=== PATIENT | female | born 1965 ===

== ENCOUNTER 2022-05-23 02:30 | Inpatient (IN) | payer MEDICAID ==
[2022-05-23 17:41] LABS: Basophils % (Auto) 0.6 % (0.0-1.8); Eosinophils # (Auto) 0.1 K/mm3 (0.0-0.4); Eosinophils % (Auto) 1.2 % (0.0-4.3); Hematocrit 39.4 % (30.3-42.9); Hemoglobin 12.7 gm/dl (10.1-14.3); Lymphocytes # (Auto) 0.7 K/mm3 (1.2-5.4); Lymphocytes % (Auto) 9.7 % (13.4-35.0); Mean Corpuscular HGB Conc 32 % (30-34); Mean Corpuscular Volume 87 fl (79-97); Monocytes # (Auto) 0.4 K/mm3 (0.0-0.8); Monocytes % (Auto) 6.5 % (0.0-7.3); Platelet Count 166 K/mm3 (140-440); Red Blood Count 4.53 M/mm3 (3.65-5.03); Red Cell Distribution Width 14.3 % (13.2-15.2)
[2022-05-23 19:00] LABS: Alanine Aminotransferase 18 units/L (7-56); Blood Urea Nitrogen 9 mg/dL (7-17); Calcium 8.8 mg/dL (8.4-10.2); Hemolysis Index 1
[2022-05-23 19:02] LABS: BUN/Creatinine Ratio 13
[2022-05-23] MEDS: GABAPENTIN 400 MG CAP PO SCH (20:16)
[2022-05-23] MEDS: ALPRAZolam 1 MG TAB PO SCH (21:06)
[2022-05-24] MEDS: ALPRAZolam 1 MG TAB PO SCH ×2 (09:41→21:45)
[2022-05-24] MEDS: GABAPENTIN 400 MG CAP PO SCH ×3 (09:41→21:45)
--- NOTE | 2022-05-24 11:58 | History and Physical Report ---
GP History & Physical - History of Present Illness Date of admission: 05/23/22 Date of Examination: 05/24/22 Reason for Admission: Danger to self, Failure of Outpatient Treatment, Severe anxiety/depression History of Present Illness: The patient was seen today. She is found standing in the bathroom door way crying and shaking. The patient says her legs are giving out and she can't walk. I turned the wheelchair around and assisted her in it. The patient says she doesn't know why no one is listening to her. She says "I can't walk. I need to be in a medical hospital not a psych burgos." She denies SI/HI. The patient says "no, no, I'm not suicidal. I'm fighting to stay alive." She denies hallucinations. The patient is crying as she's talking about her boyfriend of 17 years. She says he in December after his lawnmower turned over on him. She says she has a history of Bipolar and takes Celexa. The patient denies any illicit drug use outside of [facility]. Admission note states EMS noted bizarre behavior, paranoia and making thrashing movements with arms machine captain. PAST PSYCHIATRIC HISTORY: Diagnoses: Bipolar Suicide attempts or Self-harm behavior: Denies Prior psychiatric hospitalizations: Denies Substance Abuse history: [facility] Previous psychiatric medications tried: Celexa Outpatient treatment: Yes PAST MEDICAL HISTORY: None reported Family Psychiatric History: None reported or documented SOCIAL HISTORY Marital Status: Single Living Arrangements: Lives with someone Employment Status: Disabled Access to guns/weapons: Denies Education: History of Abuse:Denies Legal History: Denies REVIEW OF SYSTEMS Constitutional: Negative for weight loss ENT: Negative for stridor Respiratory: Negative for cough or hemoptysis All other systems reviewed and are negative MENTAL STATUS EXAMINATION General Appearance and Behavior: Age appropriate, wearing appropriate clothes, cooperative, polite with questioning, good eye contact Cooperation: cooperative Psychomotor Behavior: Psychomotor normal Mood: Depressed Affect and affective range: congruent with stated affect, crying Thought Process: goal directed Thought Content: None Speech: Normal volume, Regular rate and rhythm Suicidal Ideation: Denies Homicidal Ideation: Denies Hallucination: Denies Delusions: Yes Impulse Control: Limited Insight and Judgment: Limited Memory: Intact Attention: attentive Orientation: Alert and oriented Diagnoses: Bipolar Disorder Treatment Plan Patient admitted for inpatient psychiatric evaluation, medication adjustment and close monitoring The patient's behavior, mood, sleep and appetite will be closely monitored. Patient enrolled in individual and group therapeutic sessions and encouraged to attend. Patient provided with a safe and structured environment. Patient's physical health needs will be addressed by the Hospitalist. Hospitalist Consulted Labs including CBC, CMP, Lipid profile and Hemoglobin A1C levels ordered for baseline reference Social Assessment will be completed and the Food And Beverage Assistant Manager will work with patient and family to ensure a suitable and safe disposition Medication adjustment will be made as clinically indicated Restarted Home Meds Start Risperidone 0.25mg po BID Usual Wellness [employer] The patient agreed on the treatment plan, understood the risk, benefit, alternative treatment, potential consequence of no treatment, and gave informed consent. Estimated days: 7 Post hospital care: primary care provider, psychiatric provider Case staffed with Dr. Plummer Legal Status: Voluntary Reaction to Hospitalization: Accepting Medications and Allergies Allergies Allergy/AdvReac Type Severity Reaction Status Date / Time sumatriptan [From Imitrex] Allergy Unknown Verified 05/23/22 10:12 Home Medications Medication Instructions Recorded Confirmed Last Taken Type ALPRAZolam [Xanax TAB] 1 mg PO BID 05/23/22 05/23/22 Unknown History Citalopram [celeXA] 40 mg PO QDAY 05/23/22 05/23/22 Unknown History Gabapentin [Neurontin] 800 mg PO TID 05/23/22 05/23/22 Unknown History LORazepam [Ativan] 1 mg PO BID 05/23/22 05/23/22 Unknown History LORazepam [Ativan] 1 mg PO ONCE 05/23/22 05/23/22 05/22/22 19:47 History Levothyroxine [Synthroid] 100 mcg PO QAM 05/23/22 05/23/22 Unknown History Magnesium Sulfate 4 meq IJ ONCE 05/23/22 05/23/22 05/22/22 History Potassium Chloride [K-Dur] 40 meq PO ONCE 05/23/22 05/23/22 05/22/22 History haloperidoL [Haldol] 5 mg PO ONCE 05/23/22 05/23/22 05/22/22 21:36 History hydroCHLOROthiazide [Hctz] 12.5 mg PO PRN 05/23/22 05/23/22 Unknown History Active Meds: Active Medications Alprazolam (Alprazolam 1 Mg Tab) 1 mg PO BID [facility] Last Admin: 05/24/22 09:41 Dose: 1 mg Gabapentin (Gabapentin 400 Mg Cap) 800 mg PO TID [facility] Last Admin: 05/24/22 09:41 Dose: 800 mg Results - Results Labs/Vitals: Laboratory Last Values WBC 6.9 K/mm3 (4.5-11.0) 05/23/22 17:00 RBC 4.53 M/mm3 (3.65-5.03) 05/23/22 17:00 Hgb 12.7 gm/dl (10.1-14.3) 05/23/22 17:00 Hct 39.4 % (30.3-42.9) 05/23/22 17:00 MCV 87 fl (79-97) 05/23/22 17:00 MCH 28 pg (28-32) 05/23/22 17:00 MCHC 32 % (30-34) 05/23/22 17:00 RDW 14.3 % (13.2-15.2) 05/23/22 17:00 Plt Count 166 K/mm3 (140-440) 05/23/22 17:00 Lymph % (Auto) 9.7 % (13.4-35.0) L 05/23/22 17:00 [place] % (Auto) 6.5 % (0.0-7.3) 05/23/22 17:00 Eos % (Auto) 1.2 % (0.0-4.3) 05/23/22 17:00 Baso % (Auto) 0.6 % (0.0-1.8) 05/23/22 17:00 Lymph # (Auto) 0.7 K/mm3 (1.2-5.4) L 05/23/22 17:00 [place] # (Auto) 0.4 K/mm3 (0.0-0.8) 05/23/22 17:00 Eos # (Auto) 0.1 K/mm3 (0.0-0.4) 05/23/22 17:00 Baso # (Auto) 0.0 K/mm3 (0.0-0.1) 05/23/22 17:00 Seg Neutrophils % 82.0 % (40.0-70.0) H 05/23/22 17:00 Seg Neutrophils # 5.6 K/mm3 (1.8-7.7) 05/23/22 17:00 Sodium 137 mmol/L (137-145) 05/23/22 17:00 Potassium 3.2 mmol/L (3.6-5.0) L 05/23/22 17:00 Chloride 100.2 mmol/L (98-107) 05/23/22 17:00 Carbon Dioxide 27 mmol/L (22-30) 05/23/22 17:00 Anion Gap 13 mmol/L 05/23/22 17:00 BUN 9 mg/dL (7-17) 05/23/22 17:00 Creatinine 0.7 mg/dL (0.6-1.2) 05/23/22 17:00 Estimated GFR > 60 ml/min 05/23/22 17:00 BUN/Creatinine Ratio 13 % 05/23/22 17:00 Glucose 118 mg/dL (65-100) H 05/23/22 17:00 Hemoglobin A1c 5.8 % (4-6) 05/23/22 17:00 Calcium 8.8 mg/dL (8.4-10.2) 05/23/22 17:00 Total Bilirubin 0.50 mg/dL (0.1-1.2) 05/23/22 17:00 AST 13 units/L (5-40) 05/23/22 17:00 ALT 18 units/L (7-56) 05/23/22 17:00 Alkaline Phosphatase 52 units/L (35-129) 05/23/22 17:00 Total Protein 5.6 g/dL (6.3-8.2) L 05/23/22 17:00 Albumin 4.0 g/dL (3.9-5) 05/23/22 17:00 Albumin/Globulin Ratio 2.5 % 05/23/22 17:00 TSH 1.230 mlU/mL (0.270-4.200) 05/23/22 17:00 Last Vital Signs Temp 99.0 F 05/23/22 22:00 Pulse 98 H 05/23/22 22:00 Resp 18 05/23/22 22:00 BP 170/78 05/23/22 19:21 Pulse Ox 94 05/23/22 22:00 Physical Examination - Constitutional Vitals: Vital Signs Temp Pulse Resp BP Pulse Ox 99.0 F 98 H 18 170/78 94 05/23/22 22:00 05/23/22 22:00 05/23/22 22:00 05/23/22 19:21 05/23/22 22:00 Temperature -Last 24 Hours Temperature 99.0 F Temperature 99.0 F Temperature 98.1 F Mental Status Exam - Vital signs Last Vital Signs Temp 99.0 F 05/23/22 22:00 Pulse 98 H 05/23/22 22:00 Resp 18 05/23/22 22:00 BP 170/78 05/23/22 19:21 Pulse Ox 94 05/23/22 22:00 Physician Certification - Certification Statement Physician Certification Statement: This is an acknowledgement statement that PAULINA MCMAHAN is a 56 year old F who requires inpatient psychiatric admission for treatment which could reasonably be expected to improve the patient's condition for Estimated period of time patient will need to remain in the hospital: [ ] Plan for post-hospital care: [ ]
[2022-05-24] MEDS ORDERED: hydroCHLOROthiazide 12.5 MG CAP PO SCH (13:00)
[2022-05-24] MEDS: CITALOPRAM 20 MG TAB PO SCH (13:02)
[2022-05-24] MEDS: risperiDONE 0.25 MG TAB PO SCH ×2 (13:03→21:45)
--- NOTE | 2022-05-24 16:32 | Consultation ---
History of Present Illness - Reason for Consult Consult date: 05/24/22 Medical management - History of Present Illness Patient is a 56-year-old female past medical history of bipolar disorder, possible schizophrenia, anxiety/depression, hypertension, hypothyroidism, and morbid obesity who presented to the [facility] psychiatric unit for management of severe anxiety and depression after failing outpatient treatment. Patient was erratic in her conversation while denying having suicidal ideation. Patient denies any hallucinations. The hospitalist service was consulted for medical management. Past History Past Medical History: hyperthyroidism, hypertension, other (Depression, anxiety, bipolar disorder) Past Surgical History: No surgical history Social history: single, Lives alone, full code Family history: no significant family history Medications and Allergies Allergies Allergy/AdvReac Type Severity Reaction Status Date / Time sumatriptan [From Imitrex] Allergy Unknown Verified 05/23/22 10:12 Home Medications Medication Instructions Recorded Confirmed Last Taken Type ALPRAZolam [Xanax TAB] 1 mg PO BID 05/23/22 05/23/22 Unknown History Citalopram [celeXA] 40 mg PO QDAY 05/23/22 05/23/22 Unknown History Gabapentin [Neurontin] 800 mg PO TID 05/23/22 05/23/22 Unknown History LORazepam [Ativan] 1 mg PO BID 05/23/22 05/23/22 Unknown History LORazepam [Ativan] 1 mg PO ONCE 05/23/22 05/23/22 05/22/22 19:47 History Levothyroxine [Synthroid] 100 mcg PO QAM 05/23/22 05/23/22 Unknown History Magnesium Sulfate 4 meq IJ ONCE 05/23/22 05/23/22 05/22/22 History Potassium Chloride [K-Dur] 40 meq PO ONCE 05/23/22 05/23/22 05/22/22 History haloperidoL [Haldol] 5 mg PO ONCE 05/23/22 05/23/22 05/22/22 21:36 History hydroCHLOROthiazide [Hctz] 12.5 mg PO PRN 05/23/22 05/23/22 Unknown History Active Meds: Active Medications Alprazolam (Alprazolam 1 Mg Tab) 1 mg PO BID [facility] Last Admin: 05/24/22 09:41 Dose: 1 mg Citalopram Hydrobromide (Citalopram 20 Mg Tab) 40 mg PO QDAY [facility] Last Admin: 05/24/22 13:02 Dose: 40 mg Gabapentin (Gabapentin 400 Mg Cap) 800 mg PO TID [facility] Last Admin: 05/24/22 14:00 Dose: 800 mg Hydrochlorothiazide (Hydrochlorothiazide 12.5 Mg Cap) 25 mg PO QDAY [facility] Levothyroxine Sodium (Levothyroxine 100 Mcg Tab) 100 mcg PO QAM [facility] Nifedipine (Nifedipine Xl 30 Mg Tab) 30 mg PO QDAY [facility] Potassium Chloride (Potassium Chloride Er 20 Meq Tab) 40 meq PO BID [facility] Stop: 05/24/22 22:01 Risperidone (Risperidone 0.25 Mg Tab) 0.25 mg PO BID [facility] Last Admin: 05/24/22 13:03 Dose: 0.25 mg Review of Systems ROS unobtainable: due to mental status Exam - Constitutional Vitals: Temp Pulse Resp BP Pulse Ox 99.0 F 98 H 18 170/78 94 05/23/22 22:00 05/23/22 22:00 05/23/22 22:00 05/23/22 19:21 05/23/22 22:00 General appearance: Present: mild distress, well-nourished, obese - EENT Eyes: Present: PERRL, EOM intact ENT: hearing intact, clear oral mucosa - Neck Neck: Present: supple, normal ROM - Respiratory Respiratory effort: normal Respiratory: bilateral: CTA - Cardiovascular Rhythm: regular Heart Sounds: Present: S1 & S2 - Extremities Extremities: no ischemia, pulses intact, pulses symmetrical, No edema, normal temperature, normal color Peripheral Pulses: within normal limits - Abdominal General gastrointestinal: Present: soft, non-tender, non-distended, normal bowel sounds Female genitourinary: Present: deferred - Rectal Rectal Exam: deferred - Integumentary Integumentary: Present: clear, warm, dry - Musculoskeletal Musculoskeletal: strength equal bilaterally - Psychiatric Psychiatric: depressed - Neurologic Neurologic: CNII-XII intact, moves all extremities - Allied Health Allied health notes reviewed: nursing Results - Labs CBC & Chem 7: 05/23/22 17:00 05/23/22 17:00 Labs: Abnormal lab results 05/23/22 05/23/22 Range/Units 17:00 17:00 Lymph % (Auto) 9.7 L (13.4-35.0) % Lymph # (Auto) 0.7 L (1.2-5.4) K/mm3 Seg Neutrophils % 82.0 H (40.0-70.0) % Potassium 3.2 L (3.6-5.0) mmol/L Glucose 118 H (65-100) mg/dL Total Protein 5.6 L (6.3-8.2) g/dL Assessment and Plan Patient is a 56-year-old female past medical history of bipolar disorder, possible schizophrenia, anxiety/depression, hypertension, hypothyroidism, and morbid obesity who presented to the [facility] psychiatric unit for management of severe anxiety and depression after failing outpatient treatment. Patient was erratic in her conversation while denying having suicidal ideation. Patient denies any hallucinations. The hospitalist service was consulted for medical management. #Anxiety/depression #Bipolar disorder #Possible schizophrenia Management per primary team #Hypokalemia Potassium 3.2 Repleted. Monitor with repeat BMP in the morning. #Hypertension - home medications: Hydrochlorothiazide 12.5 mg daily as needed - current medications: Hydrochlorothiazide 25 mg daily, nifedipine 30 mg daily - SBP goal <160 and DBP goal <90 while inpatient - continue to monitor #Hypothyroidism Continue home levothyroxine 100 mcg daily #Morbid obesity #Weight loss counseling #Exercise counseling - BMI 40.4 - Counseled patient on the importance of weight loss, incorporating exercise, and dietary changes (lean meats, fresh fruits and vegetables, and water intake). Patient expresses understanding. - Time: +15 min #Advanced care planning -Disease education conducted, care plan discussed, diagnoses discussed, prognosis discussed, and patient acknowledges understanding with care plan -Time: +30 min Thank you for this interesting consult. The hospitalist service will continue to follow. Please feel free to reach out should any questions arise.
[2022-05-24] MEDS: NIFEdipine XL 30 MG TAB PO SCH (17:15)
[2022-05-24] MEDS: POTASSIUM CHLORIDE ER 20 MEQ TAB PO SCH ×2 (17:15→21:46)
[2022-05-24] MEDS: ACETAMINOPHEN 325 MG TAB PO PRN (23:42)
[2022-05-25] MEDS: ACETAMINOPHEN 325 MG TAB PO PRN ×4 (05:46→22:25)
[2022-05-25] MEDS: LEVOTHYROXINE 100 MCG TAB PO SCH (05:56)
[2022-05-25] MEDS ORDERED: LEVOTHYROXINE 100 MCG TAB PO SCH (06:00)
--- NOTE | 2022-05-25 07:47 | Progress Note ---
Subjective Date of service: 05/25/22 Principal diagnosis: schizoaffective Subjective Comment: The patient was seen today. She seems to have somatic problems. She says she has an infected tooth, and states it has her whole face is swollen and has her eye red. She says "I'm scared it's going to get to my brain." There is no obvious swelling to her face or eye. She also complained of not being able to walk. She denies SI/HI. She says "I was never that." The patient does state she is depressed. The patient denies hallucinations. Nurse informed that the patient's BP has been elevated. Advised to page hospitalist and inform of any medical problems. REVIEW OF SYSTEMS Constitutional: Negative for weight loss ENT: Negative for stridor Respiratory: Negative for cough or hemoptysis All other systems reviewed and are negative MENTAL STATUS EXAMINATION General Appearance and Behavior: Age appropriate, wearing appropriate clothes, cooperative, polite with questioning, good eye contact Cooperation: cooperative Psychomotor Behavior: Psychomotor normal Mood: Depressed Affect and affective range: congruent with stated affect, crying Thought Process: goal directed Thought Content: None Speech: Normal volume, Regular rate and rhythm Suicidal Ideation: Denies Homicidal Ideation: Denies Hallucination: Denies Delusions: Yes Impulse Control: Limited Insight and Judgment: Limited Memory: Intact Attention: attentive Orientation: Alert and oriented Diagnoses: Bipolar Disorder Treatment Plan Patient admitted for inpatient psychiatric evaluation, medication adjustment and close monitoring The patient's behavior, mood, sleep and appetite will be closely monitored. Patient enrolled in individual and group therapeutic sessions and encouraged to attend. Patient provided with a safe and structured environment. Patient's physical health needs will be addressed by the Hospitalist. Hospitalist Consulted Labs including CBC, CMP, Lipid profile and Hemoglobin A1C levels ordered for baseline reference Social Assessment will be completed and the Tariff Expert will work with patient and family to ensure a suitable and safe disposition Medication adjustment will be made as clinically indicated Increased Risperidone 0.5mg po BID Usual Wellness [employer]/Preservation The patient agreed on the treatment plan, understood the risk, benefit, alternative treatment, potential consequence of no treatment, and gave informed consent. Estimated days: 7 Post hospital care: primary care provider, psychiatric provider Case staffed with Dr. Plummer Medications and Allergies Allergies Allergy/AdvReac Type Severity Reaction Status Date / Time sumatriptan [From Imitrex] Allergy Unknown Verified 05/23/22 10:12 Home Medications Medication Instructions Recorded Confirmed Last Taken Type ALPRAZolam [Xanax TAB] 1 mg PO BID 05/23/22 05/23/22 Unknown History Citalopram [celeXA] 40 mg PO QDAY 05/23/22 05/23/22 Unknown History Gabapentin [Neurontin] 800 mg PO TID 05/23/22 05/23/22 Unknown History LORazepam [Ativan] 1 mg PO BID 05/23/22 05/23/22 Unknown History LORazepam [Ativan] 1 mg PO ONCE 05/23/22 05/23/22 05/22/22 19:47 History Levothyroxine [Synthroid] 100 mcg PO QAM 05/23/22 05/23/22 Unknown History Magnesium Sulfate 4 meq IJ ONCE 05/23/22 05/23/22 05/22/22 History Potassium Chloride [K-Dur] 40 meq PO ONCE 05/23/22 05/23/22 05/22/22 History haloperidoL [Haldol] 5 mg PO ONCE 05/23/22 05/23/22 05/22/22 21:36 History hydroCHLOROthiazide [Hctz] 12.5 mg PO PRN 05/23/22 05/23/22 Unknown History Active Meds: Active Medications Acetaminophen (Acetaminophen 325 Mg Tab) 650 mg PO Q6H PRN PRN Reason: Pain, Mild (1-3) Last Admin: 05/25/22 05:46 Dose: 650 mg Alprazolam (Alprazolam 1 Mg Tab) 1 mg PO BID [facility] Last Admin: 05/24/22 21:45 Dose: 1 mg Citalopram Hydrobromide (Citalopram 20 Mg Tab) 40 mg PO QDAY [facility] Last Admin: 05/24/22 13:02 Dose: 40 mg Gabapentin (Gabapentin 400 Mg Cap) 800 mg PO TID [facility] Last Admin: 05/24/22 21:45 Dose: 800 mg Hydrochlorothiazide (Hydrochlorothiazide 12.5 Mg Cap) 25 mg PO QDAY [facility] Levothyroxine Sodium (Levothyroxine 100 Mcg Tab) 100 mcg PO QAM@0600 [facility] Last Admin: 05/25/22 05:56 Dose: 100 mcg Nifedipine (Nifedipine Xl 30 Mg Tab) 30 mg PO QDAY [facility] Last Admin: 05/24/22 17:15 Dose: 30 mg Risperidone (Risperidone 0.25 Mg Tab) 0.25 mg PO BID [facility] Last Admin: 05/24/22 21:45 Dose: 0.25 mg Results - Results Labs/Vitals: Laboratory Last Values WBC 6.9 K/mm3 (4.5-11.0) 05/23/22 17:00 RBC 4.53 M/mm3 (3.65-5.03) 05/23/22 17:00 Hgb 12.7 gm/dl (10.1-14.3) 05/23/22 17:00 Hct 39.4 % (30.3-42.9) 05/23/22 17:00 MCV 87 fl (79-97) 05/23/22 17:00 MCH 28 pg (28-32) 05/23/22 17:00 MCHC 32 % (30-34) 05/23/22 17:00 RDW 14.3 % (13.2-15.2) 05/23/22 17:00 Plt Count 166 K/mm3 (140-440) 05/23/22 17:00 Lymph % (Auto) 9.7 % (13.4-35.0) L 05/23/22 17:00 [place] % (Auto) 6.5 % (0.0-7.3) 05/23/22 17:00 Eos % (Auto) 1.2 % (0.0-4.3) 05/23/22 17:00 Baso % (Auto) 0.6 % (0.0-1.8) 05/23/22 17:00 Lymph # (Auto) 0.7 K/mm3 (1.2-5.4) L 05/23/22 17:00 [place] # (Auto) 0.4 K/mm3 (0.0-0.8) 05/23/22 17:00 Eos # (Auto) 0.1 K/mm3 (0.0-0.4) 05/23/22 17:00 Baso # (Auto) 0.0 K/mm3 (0.0-0.1) 05/23/22 17:00 Seg Neutrophils % 82.0 % (40.0-70.0) H 05/23/22 17:00 Seg Neutrophils # 5.6 K/mm3 (1.8-7.7) 05/23/22 17:00 Sodium 137 mmol/L (137-145) 05/23/22 17:00 Potassium 3.2 mmol/L (3.6-5.0) L 05/23/22 17:00 Chloride 100.2 mmol/L (98-107) 05/23/22 17:00 Carbon Dioxide 27 mmol/L (22-30) 05/23/22 17:00 Anion Gap 13 mmol/L 05/23/22 17:00 BUN 9 mg/dL (7-17) 05/23/22 17:00 Creatinine 0.7 mg/dL (0.6-1.2) 05/23/22 17:00 Estimated GFR > 60 ml/min 05/23/22 17:00 BUN/Creatinine Ratio 13 % 05/23/22 17:00 Glucose 118 mg/dL (65-100) H 05/23/22 17:00 Hemoglobin A1c 5.8 % (4-6) 05/23/22 17:00 Calcium 8.8 mg/dL (8.4-10.2) 05/23/22 17:00 Total Bilirubin 0.50 mg/dL (0.1-1.2) 05/23/22 17:00 AST 13 units/L (5-40) 05/23/22 17:00 ALT 18 units/L (7-56) 05/23/22 17:00 Alkaline Phosphatase 52 units/L (35-129) 05/23/22 17:00 Total Protein 5.6 g/dL (6.3-8.2) L 05/23/22 17:00 Albumin 4.0 g/dL (3.9-5) 05/23/22 17:00 Albumin/Globulin Ratio 2.5 % 05/23/22 17:00 TSH 1.230 mlU/mL (0.270-4.200) 05/23/22 17:00 Last Vital Signs Temp 99.5 F 05/24/22 20:00 Pulse 92 H 05/24/22 20:00 Resp 16 05/24/22 23:42 BP 175/93 05/24/22 20:00 Pulse Ox 95 05/24/22 20:00
[2022-05-25 09:14] LABS: Blood Urea Nitrogen 9 mg/dL (7-17); Calcium 9.6 mg/dL (8.4-10.2); Hemolysis Index 6
[2022-05-25 09:15] LABS: BUN/Creatinine Ratio 13
[2022-05-25] MEDS: risperiDONE 0.25 MG TAB PO SCH ×3 (09:15→21:09)
[2022-05-25] MEDS: GABAPENTIN 400 MG CAP PO SCH ×3 (09:15→19:40)
[2022-05-25] MEDS: CITALOPRAM 20 MG TAB PO SCH (09:15)
[2022-05-25] MEDS: ALPRAZolam 1 MG TAB PO SCH ×2 (09:15→21:09)
[2022-05-25] MEDS: NIFEdipine XL 30 MG TAB PO SCH (09:16)
[2022-05-25] MEDS ORDERED: hydroCHLOROthiazide 12.5 MG CAP PO SCH (10:00)
[2022-05-25] MEDS: LOSARTAN 50 MG TAB PO SCH (11:34)
--- NOTE | 2022-05-25 16:02 | Progress Note ---
Assessment and Plan Assessment and plan: Patient is a 56-year-old female past medical history of bipolar disorder, possible schizophrenia, anxiety/depression, hypertension, hypothyroidism, and morbid obesity who presented to the [facility] psychiatric unit for management of severe anxiety and depression after failing outpatient treatment. Patient was erratic in her conversation while denying having suicidal ideation. Patient denies any hallucinations. The hospitalist service was consulted for medical management. #Anxiety/depression #Bipolar disorder #Possible schizophrenia Management per primary team #Hypokalemia-resolved Potassium 3.2 Repleted. Monitor with repeat BMP in the morning. #Hypertension - home medications: Hydrochlorothiazide 12.5 mg daily as needed - current medications: Nifedipine 60 mg daily, losartan 50mg daily - SBP goal <160 and DBP goal <90 while inpatient - continue to monitor #Hypothyroidism Continue home levothyroxine 100 mcg daily #Morbid obesity #Weight loss counseling #Exercise counseling - BMI 40.4 - Counseled patient on the importance of weight loss, incorporating exercise, and dietary changes (lean meats, fresh fruits and vegetables, and water intake). Patient expresses understanding. - Time: +15 min #Advanced care planning -Disease education conducted, care plan discussed, diagnoses discussed, prognosis discussed, and patient acknowledges understanding with care plan -Time: +30 min Thank you for this interesting consult. The hospitalist service will continue to follow. Please feel free to reach out should any questions arise. Disposition Plan: Continue medical management Total Time Spent with Patient (Minutes): 45 minutes History Interval history: No acute events overnight. Hospitalist Physical - Constitutional Vitals: Temp Pulse Resp BP Pulse Ox 98.9 F 86 18 186/97 96 05/25/22 09:45 05/25/22 14:38 05/25/22 09:45 05/25/22 14:38 05/25/22 09:45 General appearance: Present: mild distress, well-nourished, obese - EENT Eyes: Present: PERRL, EOM intact ENT: hearing intact, clear oral mucosa - Neck Neck: Present: supple, normal ROM - Respiratory Respiratory effort: normal Respiratory: bilateral: CTA - Cardiovascular Rhythm: regular Heart Sounds: Present: S1 & S2 - Extremities Extremities: no ischemia, pulses intact, pulses symmetrical, No edema, normal temperature, normal color Peripheral Pulses: within normal limits - Abdominal General gastrointestinal: soft, non-tender, non-distended, normal bowel sounds - Integumentary Integumentary: Present: clear, warm, dry - Psychiatric Psychiatric: depressed - Neurologic Neurologic: CNII-XII intact - Allied Health Allied health notes reviewed: nursing Results - Labs CBC & Chem 7: 05/23/22 17:00 05/25/22 08:39 Labs: Laboratory Last Values WBC 6.9 K/mm3 (4.5-11.0) 05/23/22 17:00 RBC 4.53 M/mm3 (3.65-5.03) 05/23/22 17:00 Hgb 12.7 gm/dl (10.1-14.3) 05/23/22 17:00 Hct 39.4 % (30.3-42.9) 05/23/22 17:00 MCV 87 fl (79-97) 05/23/22 17:00 MCH 28 pg (28-32) 05/23/22 17:00 MCHC 32 % (30-34) 05/23/22 17:00 RDW 14.3 % (13.2-15.2) 05/23/22 17:00 Plt Count 166 K/mm3 (140-440) 05/23/22 17:00 Lymph % (Auto) 9.7 % (13.4-35.0) L 05/23/22 17:00 [place] % (Auto) 6.5 % (0.0-7.3) 05/23/22 17:00 Eos % (Auto) 1.2 % (0.0-4.3) 05/23/22 17:00 Baso % (Auto) 0.6 % (0.0-1.8) 05/23/22 17:00 Lymph # (Auto) 0.7 K/mm3 (1.2-5.4) L 05/23/22 17:00 [place] # (Auto) 0.4 K/mm3 (0.0-0.8) 05/23/22 17:00 Eos # (Auto) 0.1 K/mm3 (0.0-0.4) 05/23/22 17:00 Baso # (Auto) 0.0 K/mm3 (0.0-0.1) 05/23/22 17:00 Seg Neutrophils % 82.0 % (40.0-70.0) H 05/23/22 17:00 Seg Neutrophils # 5.6 K/mm3 (1.8-7.7) 05/23/22 17:00 Sodium 139 mmol/L (137-145) 05/25/22 08:39 Potassium 4.2 mmol/L (3.6-5.0) D 05/25/22 08:39 Chloride 100.3 mmol/L (98-107) 05/25/22 08:39 Carbon Dioxide 27 mmol/L (22-30) 05/25/22 08:39 Anion Gap 16 mmol/L 05/25/22 08:39 BUN 9 mg/dL (7-17) 05/25/22 08:39 Creatinine 0.7 mg/dL (0.6-1.2) 05/25/22 08:39 Estimated GFR > 60 ml/min 05/25/22 08:39 BUN/Creatinine Ratio 13 % 05/25/22 08:39 Glucose 113 mg/dL (65-100) H 05/25/22 08:39 Hemoglobin A1c 5.8 % (4-6) 05/23/22 17:00 Calcium 9.6 mg/dL (8.4-10.2) 05/25/22 08:39 Total Bilirubin 0.50 mg/dL (0.1-1.2) 05/23/22 17:00 AST 13 units/L (5-40) 05/23/22 17:00 ALT 18 units/L (7-56) 05/23/22 17:00 Alkaline Phosphatase 52 units/L (35-129) 05/23/22 17:00 Total Protein 5.6 g/dL (6.3-8.2) L 05/23/22 17:00 Albumin 4.0 g/dL (3.9-5) 05/23/22 17:00 Albumin/Globulin Ratio 2.5 % 05/23/22 17:00 TSH 1.230 mlU/mL (0.270-4.200) 05/23/22 17:00 Alcantar/IV: Voiding Method Toilet Active Medications - Current Medications Current Medications: Generic Name Dose Route Start Last Admin Trade Name Freq PRN Reason Stop Dose Admin Acetaminophen 650 mg 05/24/22 23:31 05/25/22 11:33 Acetaminophen 325 Mg Tab PO 650 mg Q6H PRN Administration Pain, Mild (1-3) Alprazolam 1 mg 05/23/22 22:00 05/25/22 09:15 Alprazolam 1 Mg Tab PO 1 mg BID MARKUS Administration Citalopram Hydrobromide 40 mg 05/24/22 13:00 05/25/22 09:15 Citalopram 20 Mg Tab PO 40 mg QDAY MARKUS Administration Gabapentin 800 mg 05/23/22 20:00 05/25/22 14:04 Gabapentin 400 Mg Cap PO 800 mg TID MARKUS Administration Levothyroxine Sodium 100 mcg 05/25/22 06:00 05/25/22 05:56 Levothyroxine 100 Mcg Tab PO 100 mcg QAM@0600 MARKUS Administration Losartan Potassium 50 mg 05/25/22 10:02 05/25/22 11:34 Losartan 50 Mg Tab PO 50 mg QDAY MARKUS Administration Nifedipine 60 mg 05/25/22 10:03 Nifedipine Xl 30 Mg Tab PO QDAY MARKUS Risperidone 0.5 mg 05/25/22 10:00 05/25/22 09:55 Risperidone 0.25 Mg Tab PO Not Given BID MARKUS
[2022-05-26] MEDS: ACETAMINOPHEN 325 MG TAB PO PRN (04:00)
[2022-05-26] MEDS: LEVOTHYROXINE 100 MCG TAB PO SCH (05:02)
[2022-05-26] MEDS ORDERED: LORazepam 2 MG/ML VIAL IM PRN (05:28)
[2022-05-26] MEDS ORDERED: ONDANSETRON 4 MG ODT TAB PO PRN (08:56)
[2022-05-26] MEDS: GABAPENTIN 400 MG CAP PO SCH ×3 (09:00→20:45)
--- NOTE | 2022-05-26 09:09 | Progress Note ---
Subjective Date of service: 05/26/22 Principal diagnosis: schizoaffective Subjective Comment: The patient was seen today. She is complaining about tooth pain, and says she's having suboxone withdrawals. Staff says the patient was up all night, delusional, demanding and agitated. The patient denies SI/HI or hallucinations. She says she can not take the risperidone because it does not work well for her. Discussed with Dr. Plummer restarting suboxone. He also recommended lithium taper. REVIEW OF SYSTEMS Constitutional: Negative for weight loss ENT: Negative for stridor Respiratory: Negative for cough or hemoptysis All other systems reviewed and are negative MENTAL STATUS EXAMINATION General Appearance and Behavior: Age appropriate, wearing appropriate clothes, cooperative, polite with questioning, good eye contact Cooperation: cooperative Psychomotor Behavior: Psychomotor normal Mood: Depressed Affect and affective range: congruent with stated affect, crying Thought Process: goal directed Thought Content: None Speech: Normal volume, Regular rate and rhythm Suicidal Ideation: Denies Homicidal Ideation: Denies Hallucination: Denies Delusions: Yes Impulse Control: Limited Insight and Judgment: Limited Memory: Intact Attention: attentive Orientation: Alert and oriented Diagnoses: Bipolar Disorder Treatment Plan Patient admitted for inpatient psychiatric evaluation, medication adjustment and close monitoring The patient's behavior, mood, sleep and appetite will be closely monitored. Patient enrolled in individual and group therapeutic sessions and encouraged to attend. Patient provided with a safe and structured environment. Patient's physical health needs will be addressed by the Hospitalist. Hospitalist Consulted Labs including CBC, CMP, Lipid profile and Hemoglobin A1C levels ordered for baseline reference Social Assessment will be completed and the Prospecting Driller will work with patient and family to ensure a suitable and safe disposition Medication adjustment will be made as clinically indicated d/c Risperidone 0.5mg po BID Start Olanzapine 5mg po daily Start Depakote DR 125mg po BID Start Librium 25mg po BID Start Zofran 4mg po q5h prn N/V [employer]ness [employer] The patient agreed on the treatment plan, understood the risk, benefit, alternative treatment, potential consequence of no treatment, and gave informed consent. Estimated days: 7 Post hospital care: primary care provider, psychiatric provider Case staffed with Dr. Plummer Medications and Allergies Allergies Allergy/AdvReac Type Severity Reaction Status Date / Time sumatriptan [From Imitrex] Allergy Unknown Verified 05/23/22 10:12 Home Medications Medication Instructions Recorded Confirmed Last Taken Type ALPRAZolam [Xanax TAB] 1 mg PO BID 05/23/22 05/23/22 Unknown History Citalopram [celeXA] 40 mg PO QDAY 05/23/22 05/23/22 Unknown History Gabapentin [Neurontin] 800 mg PO TID 05/23/22 05/23/22 Unknown History LORazepam [Ativan] 1 mg PO BID 05/23/22 05/23/22 Unknown History LORazepam [Ativan] 1 mg PO ONCE 05/23/22 05/23/22 05/22/22 19:47 History Levothyroxine [Synthroid] 100 mcg PO QAM 05/23/22 05/23/22 Unknown History Magnesium Sulfate 4 meq IJ ONCE 05/23/22 05/23/22 05/22/22 History Potassium Chloride [K-Dur] 40 meq PO ONCE 05/23/22 05/23/22 05/22/22 History haloperidoL [Haldol] 5 mg PO ONCE 05/23/22 05/23/22 05/22/22 21:36 History hydroCHLOROthiazide [Hctz] 12.5 mg PO PRN 05/23/22 05/23/22 Unknown History Active Meds: Active Medications Acetaminophen (Acetaminophen 325 Mg Tab) 650 mg PO Q6H PRN PRN Reason: Pain, Mild (1-3) Last Admin: 05/26/22 04:00 Dose: 650 mg Alprazolam (Alprazolam 1 Mg Tab) 1 mg PO BID [facility] Last Admin: 05/25/22 21:09 Dose: 1 mg Citalopram Hydrobromide (Citalopram 20 Mg Tab) 40 mg PO QDAY [facility] Last Admin: 05/25/22 09:15 Dose: 40 mg Divalproex Sodium (Divalproex Dr 125 Mg Tab) 125 mg PO BID [facility] Gabapentin (Gabapentin 400 Mg Cap) 800 mg PO TID [facility] Last Admin: 05/25/22 19:40 Dose: 800 mg Levothyroxine Sodium (Levothyroxine 100 Mcg Tab) 100 mcg PO QAM@0600 [facility] Last Admin: 05/26/22 05:02 Dose: 100 mcg Lorazepam (Lorazepam 2 Mg/Ml Vial) 2 mg IM Q4H PRN PRN Reason: Agitation Last Admin: 05/26/22 05:35 Dose: 2 mg Losartan Potassium (Losartan 50 Mg Tab) 50 mg PO QDAY MARKUS Last Admin: 05/25/22 11:34 Dose: 50 mg Nifedipine (Nifedipine Xl 30 Mg Tab) 60 mg PO QDAY [facility] Ondansetron HCl (Ondansetron 4 Mg Odt Tab) 4 mg PO Q8H PRN PRN Reason: Nausea And Vomiting Results - Results Labs/Vitals: Laboratory Last Values WBC 6.9 K/mm3 (4.5-11.0) 05/23/22 17:00 RBC 4.53 M/mm3 (3.65-5.03) 05/23/22 17:00 Hgb 12.7 gm/dl (10.1-14.3) 05/23/22 17:00 Hct 39.4 % (30.3-42.9) 05/23/22 17:00 MCV 87 fl (79-97) 05/23/22 17:00 MCH 28 pg (28-32) 05/23/22 17:00 MCHC 32 % (30-34) 05/23/22 17:00 RDW 14.3 % (13.2-15.2) 05/23/22 17:00 Plt Count 166 K/mm3 (140-440) 05/23/22 17:00 Lymph % (Auto) 9.7 % (13.4-35.0) L 05/23/22 17:00 [place] % (Auto) 6.5 % (0.0-7.3) 05/23/22 17:00 Eos % (Auto) 1.2 % (0.0-4.3) 05/23/22 17:00 Baso % (Auto) 0.6 % (0.0-1.8) 05/23/22 17:00 Lymph # (Auto) 0.7 K/mm3 (1.2-5.4) L 05/23/22 17:00 [place] # (Auto) 0.4 K/mm3 (0.0-0.8) 05/23/22 17:00 Eos # (Auto) 0.1 K/mm3 (0.0-0.4) 05/23/22 17:00 Baso # (Auto) 0.0 K/mm3 (0.0-0.1) 05/23/22 17:00 Seg Neutrophils % 82.0 % (40.0-70.0) H 05/23/22 17:00 Seg Neutrophils # 5.6 K/mm3 (1.8-7.7) 05/23/22 17:00 Sodium 139 mmol/L (137-145) 05/25/22 08:39 Potassium 4.2 mmol/L (3.6-5.0) D 05/25/22 08:39 Chloride 100.3 mmol/L (98-107) 05/25/22 08:39 Carbon Dioxide 27 mmol/L (22-30) 05/25/22 08:39 Anion Gap 16 mmol/L 05/25/22 08:39 BUN 9 mg/dL (7-17) 05/25/22 08:39 Creatinine 0.7 mg/dL (0.6-1.2) 05/25/22 08:39 Estimated GFR > 60 ml/min 05/25/22 08:39 BUN/Creatinine Ratio 13 % 05/25/22 08:39 Glucose 113 mg/dL (65-100) H 05/25/22 08:39 Hemoglobin A1c 5.8 % (4-6) 05/23/22 17:00 Calcium 9.6 mg/dL (8.4-10.2) 05/25/22 08:39 Total Bilirubin 0.50 mg/dL (0.1-1.2) 05/23/22 17:00 AST 13 units/L (5-40) 05/23/22 17:00 ALT 18 units/L (7-56) 05/23/22 17:00 Alkaline Phosphatase 52 units/L (35-129) 05/23/22 17:00 Total Protein 5.6 g/dL (6.3-8.2) L 05/23/22 17:00 Albumin 4.0 g/dL (3.9-5) 05/23/22 17:00 Albumin/Globulin Ratio 2.5 % 05/23/22 17:00 TSH 1.230 mlU/mL (0.270-4.200) 05/23/22 17:00 Last Vital Signs Temp 98.8 F 05/25/22 19:40 Pulse 92 H 05/25/22 19:40 Resp 18 05/26/22 05:00 BP 166/96 05/25/22 19:40 Pulse Ox 93 05/25/22 19:40
[2022-05-26] MEDS ORDERED: ARIPiprazole 5 MG TAB PO SCH (10:00)
[2022-05-26] MEDS: NIFEdipine XL 30 MG TAB PO SCH (10:04)
[2022-05-26] MEDS: ALPRAZolam 1 MG TAB PO SCH ×2 (10:05→21:13)
[2022-05-26] MEDS: CITALOPRAM 20 MG TAB PO SCH (10:06)
[2022-05-26] MEDS: LOSARTAN 50 MG TAB PO SCH (10:06)
[2022-05-26] MEDS: chlordiazePOXIDE 25 MG CAP PO SCH ×2 (10:08→21:14)
[2022-05-26] MEDS: DIVALPROEX DR 125 MG TAB PO SCH ×2 (10:08→21:14)
[2022-05-26] MEDS: BUPRENORPHINE 2 MG/NALOXONE 0.5 MG FILM SL SCH ×2 (11:39→21:13)
--- NOTE | 2022-05-26 13:50 | Progress Note ---
Assessment and Plan Assessment and plan: Patient is a 56-year-old female past medical history of bipolar disorder, possible schizophrenia, anxiety/depression, hypertension, hypothyroidism, and morbid obesity who presented to the [facility] psychiatric unit for management of severe anxiety and depression after failing outpatient treatment. Patient was erratic in her conversation while denying having suicidal ideation. Patient denies any hallucinations. The hospitalist service was consulted for medical management. #Anxiety/depression #Bipolar disorder #Possible schizophrenia Management per primary team #Hypokalemia-resolved Potassium 3.2 Repleted. Monitor with repeat BMP in the morning. #Hypertension - home medications: Hydrochlorothiazide 12.5 mg daily as needed - current medications: Nifedipine 60 mg daily, losartan 50mg daily - SBP goal <160 and DBP goal <90 while inpatient - continue to monitor #Hypothyroidism Continue home levothyroxine 100 mcg daily #Morbid obesity #Weight loss counseling #Exercise counseling - BMI 40.4 - Counseled patient on the importance of weight loss, incorporating exercise, and dietary changes (lean meats, fresh fruits and vegetables, and water intake). Patient expresses understanding. - Time: +15 min #Advanced care planning -Disease education conducted, care plan discussed, diagnoses discussed, prognosis discussed, and patient acknowledges understanding with care plan -Time: +30 min Thank you for this interesting consult. The hospitalist service will continue to follow. Please feel free to reach out should any questions arise. Disposition Plan: Continue medical management Total Time Spent with Patient (Minutes): 30 minutes History Interval history: No acute events overnight. Hospitalist Physical - Constitutional Vitals: Temp Pulse Resp BP Pulse Ox 98.0 F 102 H 18 122/74 97 05/26/22 09:12 05/26/22 10:06 05/26/22 09:12 05/26/22 10:06 05/26/22 09:12 General appearance: Present: mild distress, well-nourished, obese - EENT Eyes: Present: PERRL, EOM intact ENT: hearing intact, clear oral mucosa, dentition normal - Neck Neck: Present: supple, normal ROM - Respiratory Respiratory effort: normal Respiratory: bilateral: CTA - Cardiovascular Rhythm: regular Heart Sounds: Present: S1 & S2 - Extremities Extremities: no ischemia, pulses intact, pulses symmetrical, No edema, normal temperature, normal color Peripheral Pulses: within normal limits - Abdominal General gastrointestinal: soft, non-tender, non-distended, normal bowel sounds - Integumentary Integumentary: Present: clear, warm, dry - Psychiatric Psychiatric: cooperative, depressed - Neurologic Neurologic: CNII-XII intact, moves all extremities - Allied Health Allied health notes reviewed: nursing Results - Labs CBC & Chem 7: 05/23/22 17:00 05/25/22 08:39 Labs: Laboratory Last Values WBC 6.9 K/mm3 (4.5-11.0) 05/23/22 17:00 RBC 4.53 M/mm3 (3.65-5.03) 05/23/22 17:00 Hgb 12.7 gm/dl (10.1-14.3) 05/23/22 17:00 Hct 39.4 % (30.3-42.9) 05/23/22 17:00 MCV 87 fl (79-97) 05/23/22 17:00 MCH 28 pg (28-32) 05/23/22 17:00 MCHC 32 % (30-34) 05/23/22 17:00 RDW 14.3 % (13.2-15.2) 05/23/22 17:00 Plt Count 166 K/mm3 (140-440) 05/23/22 17:00 Lymph % (Auto) 9.7 % (13.4-35.0) L 05/23/22 17:00 [place] % (Auto) 6.5 % (0.0-7.3) 05/23/22 17:00 Eos % (Auto) 1.2 % (0.0-4.3) 05/23/22 17:00 Baso % (Auto) 0.6 % (0.0-1.8) 05/23/22 17:00 Lymph # (Auto) 0.7 K/mm3 (1.2-5.4) L 05/23/22 17:00 [place] # (Auto) 0.4 K/mm3 (0.0-0.8) 05/23/22 17:00 Eos # (Auto) 0.1 K/mm3 (0.0-0.4) 05/23/22 17:00 Baso # (Auto) 0.0 K/mm3 (0.0-0.1) 05/23/22 17:00 Seg Neutrophils % 82.0 % (40.0-70.0) H 05/23/22 17:00 Seg Neutrophils # 5.6 K/mm3 (1.8-7.7) 05/23/22 17:00 Sodium 139 mmol/L (137-145) 05/25/22 08:39 Potassium 4.2 mmol/L (3.6-5.0) D 05/25/22 08:39 Chloride 100.3 mmol/L (98-107) 05/25/22 08:39 Carbon Dioxide 27 mmol/L (22-30) 05/25/22 08:39 Anion Gap 16 mmol/L 05/25/22 08:39 BUN 9 mg/dL (7-17) 05/25/22 08:39 Creatinine 0.7 mg/dL (0.6-1.2) 05/25/22 08:39 Estimated GFR > 60 ml/min 05/25/22 08:39 BUN/Creatinine Ratio 13 % 05/25/22 08:39 Glucose 113 mg/dL (65-100) H 05/25/22 08:39 Hemoglobin A1c 5.8 % (4-6) 05/23/22 17:00 Calcium 9.6 mg/dL (8.4-10.2) 05/25/22 08:39 Total Bilirubin 0.50 mg/dL (0.1-1.2) 05/23/22 17:00 AST 13 units/L (5-40) 05/23/22 17:00 ALT 18 units/L (7-56) 05/23/22 17:00 Alkaline Phosphatase 52 units/L (35-129) 05/23/22 17:00 Total Protein 5.6 g/dL (6.3-8.2) L 05/23/22 17:00 Albumin 4.0 g/dL (3.9-5) 05/23/22 17:00 Albumin/Globulin Ratio 2.5 % 05/23/22 17:00 TSH 1.230 mlU/mL (0.270-4.200) 05/23/22 17:00 Alcantar/IV: Voiding Method Toilet Active Medications - Current Medications Current Medications: Generic Name Dose Route Start Last Admin Trade Name Freq PRN Reason Stop Dose Admin Acetaminophen 650 mg 05/24/22 23:31 05/26/22 04:00 Acetaminophen 325 Mg Tab PO 650 mg Q6H PRN Administration Pain, Mild (1-3) Alprazolam 1 mg 05/23/22 22:00 05/26/22 10:05 Alprazolam 1 Mg Tab PO 1 mg BID MARKUS Administration Buprenorphine HCl 4 each 05/26/22 11:30 05/26/22 11:39 Buprenorphine 2 Mg/Naloxone 0.5 Mg Film SL 4 each BID MARKUS Administration Chlordiazepoxide HCl 25 mg 05/26/22 10:00 05/26/22 10:08 Chlordiazepoxide 25 Mg Cap PO Not Given BID MARKUS Citalopram Hydrobromide 40 mg 05/24/22 13:00 05/26/22 10:06 Citalopram 20 Mg Tab PO Not Given QDAY MARKUS Divalproex Sodium 125 mg 05/26/22 10:00 05/26/22 10:[address] 125 Mg Tab PO Not Given BID MARKUS Gabapentin 800 mg 05/23/22 20:00 05/26/22 09:00 Gabapentin 400 Mg Cap PO 800 mg TID MARKUS Administration Levothyroxine Sodium 100 mcg 05/25/22 06:00 05/26/22 05:02 Levothyroxine 100 Mcg Tab PO 100 mcg QAM@0600 MARKUS Administration Lorazepam 2 mg 05/26/22 05:28 05/26/22 05:35 Lorazepam 2 Mg/Ml Vial IM 2 mg Q4H PRN Administration Agitation Losartan Potassium 50 mg 05/25/22 10:02 05/26/22 10:06 Losartan 50 Mg Tab PO 50 mg QDAY MARKUS Administration Nifedipine 60 mg 05/25/22 10:03 05/26/22 10:04 Nifedipine Xl 30 Mg Tab PO 60 mg QDAY MARKUS Administration Olanzapine 5 mg 05/26/22 10:00 05/26/22 10:09 Olanzapine 5 Mg Tab PO Not Given QDAY MARKUS Ondansetron HCl 4 mg 05/26/22 08:56 05/26/22 09:48 Ondansetron 4 Mg Odt Tab PO 4 mg Q8H PRN Administration Nausea And Vomiting
[2022-05-27] MEDS: LEVOTHYROXINE 100 MCG TAB PO SCH (05:56)
[2022-05-27 07:33] VITALS: BP 120/69
[2022-05-27] MEDS: LOSARTAN 50 MG TAB PO SCH (09:20)
[2022-05-27] MEDS: CITALOPRAM 20 MG TAB PO SCH ×2 (09:20→09:23)
[2022-05-27] MEDS: ALPRAZolam 1 MG TAB PO SCH (09:20)
[2022-05-27] MEDS: DIVALPROEX DR 125 MG TAB PO SCH ×2 (09:20→09:23)
[2022-05-27] MEDS: BUPRENORPHINE 2 MG/NALOXONE 0.5 MG FILM SL SCH (09:21)
[2022-05-27] MEDS: NIFEdipine XL 30 MG TAB PO SCH (09:21)
--- NOTE | 2022-05-27 10:12 | Progress Note ---
Subjective Date of service: 05/27/22 Principal diagnosis: schizoaffective Subjective Comment: The patient was seen today. She says she feels much better now that she has her suboxone. The patient is refusing her oral psychotropic meds. She says "I have had so many problem sin the past with psych meds, I just don't want to take them." She is also refusing the librium. I advised the patient of the benefit of complying with her treatment. She denies SI/HI or hallucinations. The patient will discharge once her outpatient resources are in place by to help ensure her mental wellness. REVIEW OF SYSTEMS Constitutional: Negative for weight loss ENT: Negative for stridor Respiratory: Negative for cough or hemoptysis All other systems reviewed and are negative MENTAL STATUS EXAMINATION General Appearance and Behavior: Age appropriate, wearing appropriate clothes, cooperative, polite with questioning, good eye contact Cooperation: cooperative Psychomotor Behavior: Psychomotor normal Mood: Better Affect and affective range: congruent with stated affect, crying Thought Process: goal directed Thought Content: None Speech: Normal volume, Regular rate and rhythm Suicidal Ideation: Denies Homicidal Ideation: Denies Hallucination: Denies Delusions: None elicited Impulse Control: Limited Insight and Judgment: Limited Memory: Intact Attention: attentive Orientation: Alert and oriented Diagnoses: Bipolar Disorder Treatment Plan Patient admitted for inpatient psychiatric evaluation, medication adjustment and close monitoring The patient's behavior, mood, sleep and appetite will be closely monitored. Patient enrolled in individual and group therapeutic sessions and encouraged to attend. Patient provided with a safe and structured environment. Patient's physical health needs will be addressed by the Hospitalist. Hospitalist Consulted Labs including CBC, CMP, Lipid profile and Hemoglobin A1C levels ordered for baseline reference Social Assessment will be completed and the Hull Inspector will work with patient and family to ensure a suitable and safe disposition Medication adjustment will be made as clinically indicated Olanzapine 5mg po daily Depakote DR 125mg po BID D/c Librium 25mg po BID Zofran 4mg po q5h prn N/V Usual Wellness Restorationism/Preservation The patient agreed on the treatment plan, understood the risk, benefit, alternative treatment, potential consequence of no treatment, and gave informed consent. Estimated days: 7 Post hospital care: primary care provider, psychiatric provider Case staffed with Dr. Plummer Medications and Allergies Allergies Allergy/AdvReac Type Severity Reaction Status Date / Time sumatriptan [From Imitrex] Allergy Unknown Verified 05/23/22 10:12 Home Medications Medication Instructions Recorded Confirmed Last Taken Type ALPRAZolam [Xanax TAB] 1 mg PO BID 05/23/22 05/23/22 Unknown History Citalopram [celeXA] 40 mg PO QDAY 05/23/22 05/23/22 Unknown History Gabapentin [Neurontin] 800 mg PO TID 05/23/22 05/23/22 Unknown History LORazepam [Ativan] 1 mg PO BID 05/23/22 05/23/22 Unknown History LORazepam [Ativan] 1 mg PO ONCE 05/23/22 05/23/22 05/22/22 19:47 History Levothyroxine [Synthroid] 100 mcg PO QAM 05/23/22 05/23/22 Unknown History Magnesium Sulfate 4 meq IJ ONCE 05/23/22 05/23/22 05/22/22 History Potassium Chloride [K-Dur] 40 meq PO ONCE 05/23/22 05/23/22 05/22/22 History haloperidoL [Haldol] 5 mg PO ONCE 05/23/22 05/23/22 05/22/22 21:36 History hydroCHLOROthiazide [Hctz] 12.5 mg PO PRN 05/23/22 05/23/22 Unknown History Active Meds: Active Medications Acetaminophen (Acetaminophen 325 Mg Tab) 650 mg PO Q6H PRN PRN Reason: Pain, Mild (1-3) Last Admin: 05/26/22 04:00 Dose: 650 mg Alprazolam (Alprazolam 1 Mg Tab) 1 mg PO BID [facility] Last Admin: 05/27/22 09:20 Dose: 1 mg Buprenorphine HCl (Buprenorphine 2 Mg/Naloxone 0.5 Mg Film) 4 each SL BID [facility] Last Admin: 05/27/22 09:21 Dose: 4 each Citalopram Hydrobromide (Citalopram 20 Mg Tab) 40 mg PO QDAY [facility] Last Admin: 05/27/22 09:23 Dose: Not Given Divalproex Sodium (Divalproex Dr 125 Mg Tab) 125 mg PO BID [facility] Last Admin: 05/27/22 09:23 Dose: Not Given Gabapentin (Gabapentin 400 Mg Cap) 800 mg PO TID [facility] Last Admin: 05/26/22 20:45 Dose: 800 mg Levothyroxine Sodium (Levothyroxine 100 Mcg Tab) 100 mcg PO QAM@0600 [facility] Last Admin: 05/27/22 05:56 Dose: 100 mcg Lorazepam (Lorazepam 2 Mg/Ml Vial) 2 mg IM Q4H PRN PRN Reason: Agitation Last Admin: 05/26/22 05:35 Dose: 2 mg Losartan Potassium (Losartan 50 Mg Tab) 50 mg PO QDAY [facility] Last Admin: 05/27/22 09:20 Dose: 50 mg Nifedipine (Nifedipine Xl 30 Mg Tab) 60 mg PO QDAY [facility] Last Admin: 05/27/22 09:21 Dose: 60 mg Olanzapine (Olanzapine 5 Mg Tab) 5 mg PO QDAY [facility] Last Admin: 05/27/22 09:24 Dose: Not Given Ondansetron HCl (Ondansetron 4 Mg Odt Tab) 4 mg PO Q8H PRN PRN Reason: Nausea And Vomiting Last Admin: 05/26/22 09:48 Dose: 4 mg Results - Results Labs/Vitals: Laboratory Last Values WBC 6.9 K/mm3 (4.5-11.0) 05/23/22 17:00 RBC 4.53 M/mm3 (3.65-5.03) 05/23/22 17:00 Hgb 12.7 gm/dl (10.1-14.3) 05/23/22 17:00 Hct 39.4 % (30.3-42.9) 05/23/22 17:00 MCV 87 fl (79-97) 05/23/22 17:00 MCH 28 pg (28-32) 05/23/22 17:00 MCHC 32 % (30-34) 05/23/22 17:00 RDW 14.3 % (13.2-15.2) 05/23/22 17:00 Plt Count 166 K/mm3 (140-440) 05/23/22 17:00 Lymph % (Auto) 9.7 % (13.4-35.0) L 05/23/22 17:00 [place] % (Auto) 6.5 % (0.0-7.3) 05/23/22 17:00 Eos % (Auto) 1.2 % (0.0-4.3) 05/23/22 17:00 Baso % (Auto) 0.6 % (0.0-1.8) 05/23/22 17:00 Lymph # (Auto) 0.7 K/mm3 (1.2-5.4) L 05/23/22 17:00 [place] # (Auto) 0.4 K/mm3 (0.0-0.8) 05/23/22 17:00 Eos # (Auto) 0.1 K/mm3 (0.0-0.4) 05/23/22 17:00 Baso # (Auto) 0.0 K/mm3 (0.0-0.1) 05/23/22 17:00 Seg Neutrophils % 82.0 % (40.0-70.0) H 05/23/22 17:00 Seg Neutrophils # 5.6 K/mm3 (1.8-7.7) 05/23/22 17:00 Sodium 139 mmol/L (137-145) 05/25/22 08:39 Potassium 4.2 mmol/L (3.6-5.0) D 05/25/22 08:39 Chloride 100.3 mmol/L (98-107) 05/25/22 08:39 Carbon Dioxide 27 mmol/L (22-30) 05/25/22 08:39 Anion Gap 16 mmol/L 05/25/22 08:39 BUN 9 mg/dL (7-17) 05/25/22 08:39 Creatinine 0.7 mg/dL (0.6-1.2) 05/25/22 08:39 Estimated GFR > 60 ml/min 05/25/22 08:39 BUN/Creatinine Ratio 13 % 05/25/22 08:39 Glucose 113 mg/dL (65-100) H 05/25/22 08:39 Hemoglobin A1c 5.8 % (4-6) 05/23/22 17:00 Calcium 9.6 mg/dL (8.4-10.2) 05/25/22 08:39 Total Bilirubin 0.50 mg/dL (0.1-1.2) 05/23/22 17:00 AST 13 units/L (5-40) 05/23/22 17:00 ALT 18 units/L (7-56) 05/23/22 17:00 Alkaline Phosphatase 52 units/L (35-129) 05/23/22 17:00 Total Protein 5.6 g/dL (6.3-8.2) L 05/23/22 17:00 Albumin 4.0 g/dL (3.9-5) 05/23/22 17:00 Albumin/Globulin Ratio 2.5 % 05/23/22 17:00 TSH 1.230 mlU/mL (0.270-4.200) 05/23/22 17:00 Last Vital Signs Temp 98.9 F 05/27/22 06:14 Pulse 98 H 05/27/22 06:14 Resp 18 05/27/22 06:14 BP 120/69 05/27/22 06:14 Pulse Ox 93 05/27/22 06:14
[2022-05-27] MEDS: GABAPENTIN 400 MG CAP PO SCH ×2 (11:38→14:05)
--- NOTE | 2022-05-27 11:42 | Discharge Summary ---
Providers - Providers Date of Admission: 05/23/22 15:32 Date of discharge: 05/27/22 Attending physician: KG ARGUETA MD 05/23/22 14:38 Consult to Physician [CONS] Routine Comment: Consulting Provider: JENNIFER KATZ Physician Instructions: Reason For Exam: medical management Primary care physician: LEGAL RECRUITER Hospitalization Reason for admission: delusional Admitting Diagnosis: F25.9 - SCHIZOAFFECTIVE DISORDER, UNSPECIFIED Condition: Stable Hospital course: The patient was provided inpatient psychiatric treatment with safe and supportive care, medication adjustment, adverse effect monitoring, medical evaluations, medical treatments, assessment and psycho-education. The patient's mood, cognition, behavior, moral support are improved and stabilized. St the time of discharge, the patient had no endangering behavior and no debilitating adverse effects. The patient agreed on potential consequences of no treatment and gave informed consent. Disposition: 01 HOME / SELF CARE / HOMELESS Time spent for discharge: 35 Allergies/Adverse Reactions: Allergies sumatriptan [From Imitrex] Allergy (Verified 05/23/22 10:12) Unknown Vital Signs: Last Vital Signs Temp 98.9 F 05/27/22 06:14 Pulse 98 H 05/27/22 06:14 Resp 18 05/27/22 06:14 BP 120/69 05/27/22 06:14 Pulse Ox 93 05/27/22 06:14 Last Lab: Laboratory Last Values WBC 6.9 K/mm3 (4.5-11.0) 05/23/22 17:00 RBC 4.53 M/mm3 (3.65-5.03) 05/23/22 17:00 Hgb 12.7 gm/dl (10.1-14.3) 05/23/22 17:00 Hct 39.4 % (30.3-42.9) 05/23/22 17:00 MCV 87 fl (79-97) 05/23/22 17:00 MCH 28 pg (28-32) 05/23/22 17:00 MCHC 32 % (30-34) 05/23/22 17:00 RDW 14.3 % (13.2-15.2) 05/23/22 17:00 Plt Count 166 K/mm3 (140-440) 05/23/22 17:00 Lymph % (Auto) 9.7 % (13.4-35.0) L 05/23/22 17:00 [place] % (Auto) 6.5 % (0.0-7.3) 05/23/22 17:00 Eos % (Auto) 1.2 % (0.0-4.3) 05/23/22 17:00 Baso % (Auto) 0.6 % (0.0-1.8) 05/23/22 17:00 Lymph # (Auto) 0.7 K/mm3 (1.2-5.4) L 05/23/22 17:00 [place] # (Auto) 0.4 K/mm3 (0.0-0.8) 05/23/22 17:00 Eos # (Auto) 0.1 K/mm3 (0.0-0.4) 05/23/22 17:00 Baso # (Auto) 0.0 K/mm3 (0.0-0.1) 05/23/22 17:00 Seg Neutrophils % 82.0 % (40.0-70.0) H 05/23/22 17:00 Seg Neutrophils # 5.6 K/mm3 (1.8-7.7) 05/23/22 17:00 Sodium 139 mmol/L (137-145) 05/25/22 08:39 Potassium 4.2 mmol/L (3.6-5.0) D 05/25/22 08:39 Chloride 100.3 mmol/L (98-107) 05/25/22 08:39 Carbon Dioxide 27 mmol/L (22-30) 05/25/22 08:39 Anion Gap 16 mmol/L 05/25/22 08:39 BUN 9 mg/dL (7-17) 05/25/22 08:39 Creatinine 0.7 mg/dL (0.6-1.2) 05/25/22 08:39 Estimated GFR > 60 ml/min 05/25/22 08:39 BUN/Creatinine Ratio 13 % 05/25/22 08:39 Glucose 113 mg/dL (65-100) H 05/25/22 08:39 Hemoglobin A1c 5.8 % (4-6) 05/23/22 17:00 Calcium 9.6 mg/dL (8.4-10.2) 05/25/22 08:39 Total Bilirubin 0.50 mg/dL (0.1-1.2) 05/23/22 17:00 AST 13 units/L (5-40) 05/23/22 17:00 ALT 18 units/L (7-56) 05/23/22 17:00 Alkaline Phosphatase 52 units/L (35-129) 05/23/22 17:00 Total Protein 5.6 g/dL (6.3-8.2) L 05/23/22 17:00 Albumin 4.0 g/dL (3.9-5) 05/23/22 17:00 Albumin/Globulin Ratio 2.5 % 05/23/22 17:00 TSH 1.230 mlU/mL (0.270-4.200) 05/23/22 17:00 Core Measure Documentation - Palliative Care Palliative Care/ Comfort Measures: Not Applicable - Core Measures Any of the following diagnoses?: none Exam - Constitutional Vitals: Temp Pulse Resp BP Pulse Ox 98.9 F 98 H 18 120/69 93 05/27/22 06:14 05/27/22 06:14 05/27/22 06:14 05/27/22 06:14 05/27/22 06:14 General appearance: Present: no acute distress - EENT Eyes: Present: EOM intact ENT: hearing intact, clear oral mucosa - Neck Neck: Present: normal ROM Plan Activity: advance as tolerated Weight Bearing Status: Weight Bear as Tolerated Care Plan Goals: maintain good and stable mental health Plan of Treatment: The patient should be compliant with medications, not to use drugs, and not to drink alcohol. The patient understands that if suicidal ideas, homicidal ideas or any endangering feeling arise, the patient should seek assistance including, but not limited to crisis hotline, and emergency room. Assessment: Schizoaffective Follow up with: PRIMARY CARE, [Primary Care Provider] - 7 Days Prescriptions: Divalproex [Depakote ] 125 mg PO BID #60 tablet OLANzapine [ZyPREXA] 5 mg PO QDAY #30 tablet
--- NOTE | 2022-05-27 12:40 | Progress Note ---
Assessment and Plan Assessment and plan: Patient is a 56-year-old female past medical history of bipolar disorder, possible schizophrenia, anxiety/depression, hypertension, hypothyroidism, and morbid obesity who presented to the [facility] psychiatric unit for management of severe anxiety and depression after failing outpatient treatment. Patient was erratic in her conversation while denying having suicidal ideation. Patient denies any hallucinations. The hospitalist service was consulted for medical management. #Anxiety/depression #Bipolar disorder #Possible schizophrenia Management per primary team #Hypokalemia-resolved Potassium 3.2 Repleted. Monitor with repeat BMP in the morning. #Hypertension - home medications: Hydrochlorothiazide 12.5 mg daily as needed - current medications: Nifedipine 60 mg daily, losartan 50mg daily - SBP goal <160 and DBP goal <90 while inpatient - continue to monitor #Hypothyroidism Continue home levothyroxine 100 mcg daily #Morbid obesity #Weight loss counseling #Exercise counseling - BMI 40.4 - Counseled patient on the importance of weight loss, incorporating exercise, and dietary changes (lean meats, fresh fruits and vegetables, and water intake). Patient expresses understanding. - Time: +15 min #Advanced care planning -Disease education conducted, care plan discussed, diagnoses discussed, prognosis discussed, and patient acknowledges understanding with care plan -Time: +30 min Thank you for this interesting consult. The hospitalist service will continue to follow. Please feel free to reach out should any questions arise. Disposition Plan: Continue medical management Total Time Spent with Patient (Minutes): 30 History Interval history: No acute events overnight. Hospitalist Physical - Constitutional Vitals: Temp Pulse Resp BP Pulse Ox 98.9 F 98 H 18 120/69 93 05/27/22 06:14 05/27/22 06:14 05/27/22 06:14 05/27/22 06:14 05/27/22 06:14 General appearance: Present: no acute distress, well-nourished, obese - EENT Eyes: Present: PERRL, EOM intact ENT: hearing intact, clear oral mucosa - Neck Neck: Present: supple, normal ROM - Respiratory Respiratory effort: normal Respiratory: bilateral: CTA - Cardiovascular Rhythm: regular Heart Sounds: Present: S1 & S2 - Extremities Extremities: no ischemia, pulses intact, No edema, normal temperature, normal color Peripheral Pulses: within normal limits - Abdominal General gastrointestinal: soft, non-tender, non-distended, normal bowel sounds - Integumentary Integumentary: Present: clear, warm, dry - Psychiatric Psychiatric: appropriate mood/affect - Neurologic Neurologic: CNII-XII intact, moves all extremities - Allied Health Allied health notes reviewed: nursing Results - Labs CBC & Chem 7: 05/23/22 17:00 05/25/22 08:39 Labs: Laboratory Last Values WBC 6.9 K/mm3 (4.5-11.0) 05/23/22 17:00 RBC 4.53 M/mm3 (3.65-5.03) 05/23/22 17:00 Hgb 12.7 gm/dl (10.1-14.3) 05/23/22 17:00 Hct 39.4 % (30.3-42.9) 05/23/22 17:00 MCV 87 fl (79-97) 05/23/22 17:00 MCH 28 pg (28-32) 05/23/22 17:00 MCHC 32 % (30-34) 05/23/22 17:00 RDW 14.3 % (13.2-15.2) 05/23/22 17:00 Plt Count 166 K/mm3 (140-440) 05/23/22 17:00 Lymph % (Auto) 9.7 % (13.4-35.0) L 05/23/22 17:00 [place] % (Auto) 6.5 % (0.0-7.3) 05/23/22 17:00 Eos % (Auto) 1.2 % (0.0-4.3) 05/23/22 17:00 Baso % (Auto) 0.6 % (0.0-1.8) 05/23/22 17:00 Lymph # (Auto) 0.7 K/mm3 (1.2-5.4) L 05/23/22 17:00 [place] # (Auto) 0.4 K/mm3 (0.0-0.8) 05/23/22 17:00 Eos # (Auto) 0.1 K/mm3 (0.0-0.4) 05/23/22 17:00 Baso # (Auto) 0.0 K/mm3 (0.0-0.1) 05/23/22 17:00 Seg Neutrophils % 82.0 % (40.0-70.0) H 05/23/22 17:00 Seg Neutrophils # 5.6 K/mm3 (1.8-7.7) 05/23/22 17:00 Sodium 139 mmol/L (137-145) 05/25/22 08:39 Potassium 4.2 mmol/L (3.6-5.0) D 05/25/22 08:39 Chloride 100.3 mmol/L (98-107) 05/25/22 08:39 Carbon Dioxide 27 mmol/L (22-30) 05/25/22 08:39 Anion Gap 16 mmol/L 05/25/22 08:39 BUN 9 mg/dL (7-17) 05/25/22 08:39 Creatinine 0.7 mg/dL (0.6-1.2) 05/25/22 08:39 Estimated GFR > 60 ml/min 05/25/22 08:39 BUN/Creatinine Ratio 13 % 05/25/22 08:39 Glucose 113 mg/dL (65-100) H 05/25/22 08:39 Hemoglobin A1c 5.8 % (4-6) 05/23/22 17:00 Calcium 9.6 mg/dL (8.4-10.2) 05/25/22 08:39 Total Bilirubin 0.50 mg/dL (0.1-1.2) 05/23/22 17:00 AST 13 units/L (5-40) 05/23/22 17:00 ALT 18 units/L (7-56) 05/23/22 17:00 Alkaline Phosphatase 52 units/L (35-129) 05/23/22 17:00 Total Protein 5.6 g/dL (6.3-8.2) L 05/23/22 17:00 Albumin 4.0 g/dL (3.9-5) 05/23/22 17:00 Albumin/Globulin Ratio 2.5 % 05/23/22 17:00 TSH 1.230 mlU/mL (0.270-4.200) 05/23/22 17:00 Alcantar/IV: Voiding Method Toilet Active Medications - Current Medications Current Medications: Generic Name Dose Route Start Last Admin Trade Name Freq PRN Reason Stop Dose Admin Acetaminophen 650 mg 05/24/22 23:31 05/26/22 04:00 Acetaminophen 325 Mg Tab PO 650 mg Q6H PRN Administration Pain, Mild (1-3) Alprazolam 1 mg 05/23/22 22:00 05/27/22 09:20 Alprazolam 1 Mg Tab PO 1 mg BID MARKUS Administration Buprenorphine HCl 4 each 05/26/22 11:30 05/27/22 09:21 Buprenorphine 2 Mg/Naloxone 0.5 Mg Film SL 4 each BID MARKUS Administration Citalopram Hydrobromide 40 mg 05/24/22 13:00 05/27/22 09:23 Citalopram 20 Mg Tab PO Not Given QDAY MARKUS Divalproex Sodium 125 mg 05/26/22 10:00 05/27/22 09:[address] 125 Mg Tab PO Not Given BID MARKUS Gabapentin 800 mg 05/23/22 20:00 05/27/22 11:38 Gabapentin 400 Mg Cap PO Not Given TID MARKUS Levothyroxine Sodium 100 mcg 05/25/22 06:00 05/27/22 05:56 Levothyroxine 100 Mcg Tab PO 100 mcg QAM@0600 MARKUS Administration Lorazepam 2 mg 05/26/22 05:28 05/26/22 05:35 Lorazepam 2 Mg/Ml Vial IM 2 mg Q4H PRN Administration Agitation Losartan Potassium 50 mg 05/25/22 10:02 05/27/22 09:20 Losartan 50 Mg Tab PO 50 mg QDAY MARKUS Administration Nifedipine 60 mg 05/25/22 10:03 05/27/22 09:21 Nifedipine Xl 30 Mg Tab PO 60 mg QDAY MARKUS Administration Olanzapine 5 mg 05/26/22 10:00 05/27/22 09:24 Olanzapine 5 Mg Tab PO Not Given QDAY MARKUS Ondansetron HCl 4 mg 05/26/22 08:56 05/26/22 09:48 Ondansetron 4 Mg Odt Tab PO 4 mg Q8H PRN Administration Nausea And Vomiting
== END 2022-05-27 13:30 | disposition home or self-care (01) | DRG 885 ==
LOC: UNDOADMIN 02:30 → 3A 02:30 → 5A 15:32
PROVIDERS: ADMIT Psychiatry & Neurology Psychiatry; ATTEND Psychiatry & Neurology Psychiatry
DX: F31.9 Bipolar disorder, unspecified (principal); F25.9 Schizoaffective disorder, unspecified; E05.90 Thyrotoxicosis, unspecified without thyrotoxic crisis or storm; I10 Essential (primary) hypertension; E66.01 Morbid (severe) obesity due to excess calories; F41.9 Anxiety disorder, unspecified; E87.6 Hypokalemia; Z71.3 Dietary counseling and surveillance; Z68.41 Body mass index [BMI] 40.0-44.9, adult; Z88.8 Allergy status to other drugs, medicaments and biological substances
CPT/HCPCS: 36415; 80048; 80053; 83036; 84443; 85025; G0378; J3490; J2060; Q0162